=== PATIENT | female | born 1975 | race Hispanic/Latino ===

== ENCOUNTER 2021-06-27 20:55 | Emergency (ER) | payer SELFPAY ==
[2021-06-27] VITALS (7 sets, daily range): BP systolic 103–129; BP diastolic 56–71
[~2021-06-27] VITALS: Ht 149.9 cm; Wt 75.0 kg
[2021-06-27] MEDS ORDERED: CORTISPORIN OTI10 M2 AD (22:03)
== END 2021-06-27 23:25 | disposition home or self-care (01) | DRG 156 ==
LOC: ED 20:55
PROC: 09C3XZZ Extirpation of Matter from Right External Auditory Canal, External Approach (ICD-10-PCS; principal; 2021-06-27)
DX: T16.1XXA Foreign body in right ear, initial encounter (principal); X58.XXXA Exposure to other specified factors, initial encounter

== ENCOUNTER 2022-11-28 16:44 | Emergency (ER) | payer SELFPAY ==
[~2022-11-28] VITALS: Ht 149.9 cm; Wt 75.0 kg
[~2022-11-28 16:44] MED LIST: CORTISPORIN OTI10 M2 AD
[2022-11-28 18:20] VITALS: BP 132/67
[2022-11-28 18:35] VITALS: BP 127/78
[2022-11-28 18:56] LABS: BASO% 0.4 % (0-3); EOS% 3.8 % (0-8); HEMATOCRIT 36.9 % (37.0-47.0); HEMOGLOBIN 12.1 g/dl (12.0-16.0); IMMATURE GRANULOCYTES 0.4 % (0.0-5.0); LYMPH% 29.5 % (15-41); MEAN CELL VOLUME 86.8 fL CALC (80.0-100.0); MEAN CORPUSCULAR HGB 28.5 pG CALC (26.0-32.0); MEAN CORPUSCULAR HGB CONC 32.8 g/dL CAL (32.0-36.0); MONO% 7.2 % (2-13); NEUT# 4.21 thou/uL (2.00-7.15); NEUT% 58.7 % (42-76); RED BLOOD COUNT 4.25 mill/uL (4.20-5.60); RED CELL DISTRI WIDTH 14.3 % (11.5-15.5)
[2022-11-28 19:07] LABS: ALBUMIN 4.3 g/dL (3.2-5.0); ALKALINE PHOSPHATASE 79 u/l (38-126); ANION GAP 14 (6-22 (CALC)); BILIRUBIN, TOTAL 0.8 mg/dL (0.02-1.3); BUN 15 mg/dL (7-17); BUN/CREATININE RATIO 30 (12-20 (CALC)); CARBON DIOXIDE 22 mmol/l (22-30); CHLORIDE 104 mmol/l (95-108); CREATININE 0.5 mg/dL (0.5-1.0); GFR FOR AFR.AMER. > 60 ML/MIN (>=60 (CALC)); GFR OTHER RACES > 60 ML/MIN (>=60 (CALC)); POTASSIUM 3.9 mmol/l (3.5-5.1); SGOT/AST 36 u/l (14-36); SODIUM 137 mmol/l (137-146)
[2022-11-28] MEDS ORDERED: PROMETHAZINE/COD1 ML PO (20:08)
[2022-11-28 20:15] VITALS: BP 127/78
[2022-11-29] MEDS ORDERED: CHERATUSSIN PO (11:38)
== END 2022-11-28 20:29 | disposition home or self-care (01) | DRG 204 ==
LOC: ED 16:44
PROVIDERS: Family Medicine
DX: R05.9 Cough, unspecified (principal); E78.00 Pure hypercholesterolemia, unspecified; Z20.822 Contact with and (suspected) exposure to COVID-19